=== PATIENT | female | born 1930 | race Caucasian/White ===

== ENCOUNTER 2016-08-22 02:05 | Emergency (ER) | payer OTHER ==
[~2016-08-22] VITALS: Ht 160 cm; Wt 59.0 kg
[2016-08-22 02:10] VITALS: BP 145/83; PULSE 75; RESP 14; TEMP 97.5; O2SAT 98
[2016-08-22] MEDS ORDERED: IBUPROFEN 600 MG TABLET PO ONE (02:30)
[2016-08-22] MEDS ORDERED: LIDOCAINE/EPI 1% 1:100000 20 ML VIAL INJ ONE (02:30)
[2016-08-22] MEDS ORDERED: IPRATROPIUM/ALBUTEROL SULFATE 3 ML AMPUL.NEB INH ONE (03:00)
[2016-08-22 03:26] VITALS: BP 145/70; PULSE 79; RESP 17; TEMP 97.5; O2SAT 96
== END 2016-08-22 03:26 | disposition home or self-care (01) ==
LOC: SED 02:05
DX: S01.112A Laceration without foreign body of left eyelid and periocular area, initial encounter (principal); S01.21XA Laceration without foreign body of nose, initial encounter; J20.9 Acute bronchitis, unspecified; I10 Essential (primary) hypertension; W01.0XXA Fall on same level from slipping, tripping and stumbling without subsequent striking against object, initial encounter; Y93.89 Activity, other specified; Y92.091 Bathroom in other non-institutional residence as the place of occurrence of the external cause; Y99.8 Other external cause status
CPT/HCPCS: 93005; 94640; 99283